=== PATIENT | female | born 1965 | race Caucasian/White ===

== ENCOUNTER 2020-07-12 09:27 | Emergency (ER) | payer BC, OTHER | END 2020-07-12 10:01 | disposition home or self-care (01) | LOC: JVIRT 09:27 | DX: Z03.818 Encounter for observation for suspected exposure to other biological agents ruled out (principal) | CPT/HCPCS: C9803; Q3014-GT; U0003 ==

== ENCOUNTER 2020-07-26 13:06 | Emergency (ER) | payer BC, OTHER | END 2020-07-26 13:10 | disposition home or self-care (01) | LOC: JVIRT 13:06 | DX: Z03.818 Encounter for observation for suspected exposure to other biological agents ruled out (principal) | CPT/HCPCS: C9803; G2012-GT; U0003 ==